=== PATIENT | male | born 1965 | race African-American/Black ===

== ENCOUNTER 2017-05-13 06:12 | Observation (INO) | payer BC ==
[2017-05-13] VITALS (14 sets, daily range): BP systolic 113–137; BP diastolic 65–86
[~2017-05-13] VITALS: Ht 172.7 cm; Wt 104.3 kg
[~2017-05-13 06:12] MED LIST: MESA1.2T PO; MESA10003 RC
[2017-05-13] MEDS ORDERED: GOLI100D SQ (06:25)
[2017-05-13 06:37] LABS: HEMOGLOBIN 15.2 g/dL (13.0-17.5); RED BLOOD COUNT 5.35 x10^6/uL (4.30-5.70); WHITE BLOOD COUNT 4.7 x10^3/uL (4.0-11.0)
[2017-05-13] MEDS ORDERED: LIDOCAINE 2% 20 ML VIAL. ONE (06:40)
[2017-05-13] MEDS ORDERED: IOHEXOL 300 MG/ML 100ML VIAL. ONE ×2 (06:40→08:15)
[2017-05-13 06:48] LABS: CALCIUM 8.9 mg/dL (8.5-10.1); CREATININE 0.9 mg/dL (0.7-1.3); GFR 107.2; POTASSIUM 4.1 mmol/L (3.5-5.1)
[2017-05-13 06:49] LABS: INR 1.1 (0.8-1.1); PROTHROMBIN TIME PATIENT 13.2 SEC (11.7-14.0)
[2017-05-13] MEDS ORDERED: NITROGLYCERIN 200 MCG/2 ML SYRINGE FOR CATH/VASC LAB. ONE (07:25)
[2017-05-13] MEDS ORDERED: VERAPAMIL 5 MG/2 ML VIAL. ONE (07:25)
[2017-05-13] MEDS ORDERED: HEPARIN for IV BOLUS 10,000 UNIT/10 ML VIAL. ONE (07:25)
[2017-05-13] MEDS ORDERED: fentaNYL PF VIAL 100 MCG/2 ML VIAL ONE (07:25)
[2017-05-13] MEDS ORDERED: MIDAZOLAM HCL/PF 2 MG/2 ML VIAL. ONE ×2 (07:26→08:10)
[2017-05-13] MEDS ORDERED: NITROGLYCERIN 200 MCG/2 ML SYRINGE FOR CATH/VASC LAB. IART ONE (07:45)
[2017-05-13] MEDS ORDERED: fentaNYL PF VIAL 100 MCG/2 ML VIAL IV ONE (07:45)
[2017-05-13] MEDS ORDERED: VERAPAMIL 5 MG/2 ML VIAL. IART ONE (07:45)
[2017-05-13] MEDS ORDERED: MIDAZOLAM HCL/PF 2 MG/2 ML VIAL. IV ONE (07:45)
[2017-05-13] MEDS ORDERED: HEPARIN for IV BOLUS 10,000 UNIT/10 ML VIAL. IART ONE (07:45)
[2017-05-13] MEDS ORDERED: LIDOCAINE 2% 20 ML VIAL. IJ ONE (07:45)
[2017-05-13] MEDS ORDERED: IOHEXOL 300 MG/ML 100ML VIAL. IART ONE (07:45)
[2017-05-13] MEDS ORDERED: BIVALIRUDIN 250 MG VIAL. IV ONE ×2 (07:57→08:15)
[2017-05-13] MEDS ORDERED: ASPIRIN 325 MG TABLET ONE (07:57)
--- NOTE | 2017-05-13 08:14 | HP ---
ADMIT DATE: 05/13/2017 HISTORY OF PRESENT ILLNESS: This is a 51-year-old black male who I saw for the first time on 04/28/2017, when he came in actually complaining of dizziness. He was very concerned about several episodes of dizziness. This would occur with exertion. He then admitted to having chest discomfort and shortness of breath with exertion. 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 He gives history of hypertension intermittently, and he says he is not on any medications. There is no history of diabetes mellitus. He also said that his cholesterol was high, though he did not know the numbers. The dizziness that he describes is certainly not vertigo. He just feels lightheaded. There are no associated palpitations. SOCIAL HISTORY: He does not smoke; in fact, he has never smoked. He drinks about 4-5 cans of beer a day. FAMILY HISTORY: His father at the age of 60 of an acute myocardial infarction. Prior to that he had at least 2 episodes of myocardial infarction. The patient is 51 years old. An older brother, who is 57 years old, recently had open heart surgery. PHYSICAL EXAMINATION: VITAL SIGNS: He was overweight with a weight of 238 pounds. The heart rate was 90 per minute and regular. The blood pressure initially was 160/100 in the office and then came down to 140/100. LUNGS: Clear. CARDIOVASCULAR: The heart sounds were normal with no murmur or gallop. The carotids are palpable with no bruits. ABDOMEN: Soft. EXTREMITIES: There is no edema and the distal pulses are palpable. LABORATORY DATA: An EKG was normal. Because of his dizziness, he underwent evaluation for orthostatic hypotension, though blood pressure when lying was 142/100 with a pulse of 88; on sitting, it was 136/92 with a pulse of 90 and on standing, it was 138/98 with a pulse of 98. When he continued to stand for 2 minutes, his blood pressure further dropped to 118/84 with a pulse of 100 per minute. He did feel somewhat dizzy then. IMPRESSION: 1. Chest discomfort and shortness of breath and dizziness, typical angina with exertion. 2. Mild hypertension with mild orthostatic hypotension. 3. History of dyslipidemia. He underwent an echocardiogram. It showed a normal systolic function with ejection fraction of 60%. There is a grade 1 diastolic dysfunction and no significant valvular dysfunction. He then underwent a myocardial perfusion imaging study with Lexiscan. There was a moderate-sized perfusion defect occupying the anterolateral wall and the inferior wall with stress but not with rest. This is suggestive of myocardial ischemia. The ejection fraction was 66%. LABORATORY INVESTIGATIONS: The hemoglobin was 15.2. The fasting blood sugar was 92. The BUN was 13, creatinine was 0.8. The potassium was 4.1. The TSH was 3.35. The total cholesterol was 205. The triglycerides were 118. The HDL cholesterol was 45. The LDL cholesterol was 136. He does have risk factors of hypertension and dyslipidemia and the family history of coronary artery disease. He is very symptomatic to the point that he is unable to work. He is only 51 years old. He will be subjected to coronary arteriograms. He has 2 perfusion defects, the more prominent one is in the lateral wall but there is a smaller anteroseptal wall defect. He may have more than one artery disease. He will be stented if feasible because of his younger age. I have discussed this with Dr. Acosta and Dr. Zamora. BINDU VICTOR MD DR: JELENA/prosper JOB#: [id number] / [id number]
[2017-05-13] MEDS ORDERED: ASPIRIN 325 MG TABLET PO ONE (08:15)
[2017-05-13] MEDS ORDERED: PRASUGREL 10 MG TABLET. ONE (08:33)
[2017-05-13] MEDS ORDERED: PRASUGREL 10 MG TABLET. PO ONE (08:45)
--- NOTE | 2017-05-13 10:04 | PDOC ---
MODERATE SEDATION ASSESSMENT RISKS/ALTERNATIVES Risks/Alternatives Risks and alternatives of this type of sedation and procedure discussed with: RISK/ALTERNATIVES: Patient H & P ON CHART H & P H & P on chart and reviewed for co-morbid conditions and appropriate labs. H&P ON CHART: Yes STATUS PREG STATUS ASSESSED: N/A MEDS/ALLERGIES REVIEWED Meds/Allergies Reviewed Medications and Allergies including time and route of recently administered narcotics and sedatives. MEDS/ALLERGIES REVIEWED: Yes ASA RATING ASA RATING: II AIRWAY ASSESSMENT Airway Assessment Airway patency, oral function limitations, presence of caps, crowns, dentures, partials, and ability to extend neck assessed. AIRWAY ASSESSMENT: Yes MALLAMPATI SCORE MALLAMPATI SCORE: II PRE-SEDATION ASSESSMENT PRE-SEDATION ASSESSMENT: Yes BRITTNEY PATEL MD May 13, 2017 10:04
[2017-05-13] MEDS ORDERED: IV 1/2 NORMAL SALINE 1,000 ML IV SCH (10:05)
[2017-05-13] MEDS ORDERED: ACETAMINOPHEN 325 MG TABLET. PO PRN (10:15)
[2017-05-13] MEDS ORDERED: AMIODARONE 150 MG in IV DEXTROSE 5% 100 ML IV PRN (10:15)
[2017-05-13] MEDS ORDERED: NITROGLYCERIN SUBLINGUAL 0.4 MG BOTTLE OF 25. SL PRN (10:15)
--- NOTE | 2017-05-13 10:18 | CARD ---
APPROVED REPORT Procedure(s) performed: 1. Left heart catheterization, selective coronary angiography via right lopez sradial approach 2. Successful PCI/drug eluting stents placement to the right coronary artery 3. Successful PCI/drug eluting stents placement to the left circumflex artery and obtuse marginal br anch INDICATION The indication(s) include : unstable angina . PROCEDURE NARRATIVE After explaining the risks, benefits and alternative options, informed consent was obtained from christina ent. Patient was brought to the cardiac [employer] and right wrist was prepped and draped in the usual fashion after confirming a positive modified Hosea's test. Arterial access was obtained in the righ t radial artery and a 6 Irish sheath was inserted. 6 Irish JL 3.5 and 6 Irish JR4 catheters were u sed to perform selective angiography of the left and right coronary arteries after initial attempts t o engage these vessels using 6 Irish Nirav catheter. Unsuccessful. LVEDP and transaortic gradients remeasured. The following findings were noted. FINDINGS 1. Hemodynamics: Left ventricular end-diastolic pressure of 5 mmHg. No pullback gradient across the aortic valve. 2. Coronary angiography: a. The left main coronary artery arose from the left sinus of Valsalva, gave rise to the left anteri or descending and left circumflex arteries and did not show any significant stenosis. b. The left anterior descending artery showed 80% stenosis involving the very distal segment towards the apical wall. c. The left circumflex artery showed 70% stenosis in the midsegment and 90% stenosis involving third obtuse marginal branch. d. The right coronary artery was a dominant vessel arising from the right sinus of Valsalva that vannessa wed a long 80% stenosis involving the midsegment. INTERVENTION The right coronary artery was engaged with a 6 Irish JR4 guide catheter and the stenosis in the mids egment was crossed with a 0.014 inch [employer] guidewire. This was predilated with a 2.5 x 15 mm balloon following which this was successfully treated with overlapping 2.5 x 18 mm and 2.75 x 38 mm Xience Alpine drug-eluting stents. Follow-up angiography showed resolution of the stenosis to 0% wit h NIKITA-3 distal flow. Subsequently, the left main coronary artery was engaged with a 6 Irish XB 3.5 guide catheter and the stenoses in the midsegment of the left circumflex artery and also the third ob tuse marginal branch were crossed with the same prowater guidewire. The obtuse marginal branch stenos is was successfully treated with a 2.25 x 15 mm Xience Alpine and the midsegment of the left circumfl ex artery was treated with a 3.5 x 15 mm Xience Alpine drug-eluting stents. Follow-up and jugular V s howed resolution of both these stenoses to 0% with NIKITA-3 distal flow. Patient tolerated the procedur e well. Hemostasis was achieved using TR band. There were no immediate complications. Conclusion Successful PCI/drug eluting stents placement to the right coronary artery, left circumflex artery and the third obtuse marginal branch. Patient also has residual 80% stenosis involving the very distal s egment of left anterior descending artery towards apical wall that could be managed medically. Recommendations 1. Aspirin 325 mg daily 2. Effient 10 mg daily for preferably one year 3. Cardiovascular risk factor modification.
[2017-05-13] MEDS ORDERED: PRAS10TA9 PO (20:11)
[2017-05-13] MEDS ORDERED: ATOR40TA59 PO (20:11)
[2017-05-13] MEDS ORDERED: ASPI325T8 PO (20:43)
[2017-05-13] MEDS ORDERED: ATORVASTATIN CALCIUM 20 MG TABLET PO SCH (21:00)
[2017-05-13] MEDS ORDERED: MESALAMINE 1.2 GM TABLET.DR PO SCH (21:00)
--- NOTE | 2017-05-14 00:29 | DS ---
DATE OF DISCHARGE: 05/13/2017 HOSPITAL COURSE: This is a 51-year-old black male who was seen in the office with complaints of chest pain, shortness of breath and dizziness with exertion. He underwent a myocardial perfusion imaging study. It showed a large defect in the lateral wall indicative of ischemia. There was another area that was smaller with anterior apical wall. He underwent coronary arteriograms by Dr. Acosta on 05/13/2017. The findings are as follows: The left main coronary artery is normal. The LAD had 80% stenosis involving the very distal segment towards the apical wall. The circumflex coronary artery showed 70% stenosis in its mid segment. There is another area of 90% stenosis involving the third obtuse marginal branch. The right coronary artery was a dominant vessel and showed a long ____ 80% stenosis involving the mid segment. He does underwent the following procedures. 1. The right coronary artery was stented with overlapping drug-eluting stents. 2. There was a stent placed in the mid segment of the left circumflex coronary artery and another stent in the third obtuse marginal branch. No intervention was carried out at the distal LAD lesion. He was observed till that evening. He was feeling well and was discharged. The hemoglobin was ____. The BUN was 9 and the creatinine was 0.9. FINAL DIAGNOSES: 1. Typical chest pain with exertion. 2. Severe triple vessel disease. HOMEGOING INSTRUCTIONS: 1. Activities to tolerance. 2. A 2 g sodium, low cholesterol diet. 3. Atorvastatin 40 mg a day. 4. ____ 10 mg a day. 5. Aspirin 325 mg a day. 6. Continue the Simponi 100 mg a month. 7. Mesalamine 1.2 g 3 times a day. He will be seen in the office in 2 weeks. He will follow up with Dr. Han Alejandre. BINDU VICTOR MD DR: JELENA/prosper JOB#: [id number] / [id number] HAN Larry MD
[2017-05-14] MEDS ORDERED: PRASUGREL 10 MG TABLET. PO SCH (08:00)
[2017-05-14] MEDS ORDERED: ASPIRIN ENTERIC COATED 325 MG TABLET.DR. PO SCH (08:00)
[2017-06-17] MEDS ORDERED: GOLIMUMAB SQ SCH (09:00)
== END 2017-05-13 21:50 | disposition home or self-care (01) ==
LOC: CCL 06:12 → INTOOBSV 08:27 → 2 SOUTH 08:27
PROVIDERS: ADMIT Specialist; ATTEND Internal Medicine Cardiovascular Disease
DX: I25.119 Atherosclerotic heart disease of native coronary artery with unspecified angina pectoris (principal); I95.1 Orthostatic hypotension; I10 Essential (primary) hypertension; E78.5 Hyperlipidemia, unspecified; I25.9 Chronic ischemic heart disease, unspecified; Z79.82 Long term (current) use of aspirin; Z79.899 Other long term (current) drug therapy; Z82.49 Family history of ischemic heart disease and other diseases of the circulatory system
CPT/HCPCS: 36415; 80048; 85027; 85610; 85730; 93458; 96374; 96375; C1725; C1769; C1874; C1887; C1892; C9600; G0378; G0379; J0583; J1644; J2001; J2250; J3010; J3490; Q9967; 92928; 92929; 99152; 99153

== ENCOUNTER → 2019-04-18 | Outpatient (CLI) | payer OTHER ==
[2017-05-13 19:20] VITALS: BP 129/75
[~2019-04-18] MED LIST changes: +ASPI325T8 PO; +ATOR40TA59 PO; +CONTRAST GIVEN. MC PRN; +GOLI100D SQ; +IOHEXOL 300 MG/ML 100ML VIAL. IV ONE; +LIALDA1.2 GM PO; -MESA1.2T PO; +PRAS10TA9 PO
--- NOTE | 2019-04-18 12:14 | RAD ---
CT of the abdomen and pelvis with contrast (CT enterography), 04/18/2019: HISTORY: Irritable bowel syndrome, perianal abscess Multidetector CT imaging was performed following an IV bolus injection of iodinated contrast material. The patient ingested the Volumen orally for negative contrast within the bowel lumen. Multiplanar reconstructions were produced. The stomach is unremarkable. The small bowel loops are of normal caliber with no evidence of thickening of their folds. The cecum lies in a high position directed anteriorly along the anterior aspect of the hepatic flexure. The terminal ileum is unremarkable. The appendix was visualized and shows no abnormality. There is mild colonic mural thickening which is most prominent at the sigmoid level. The rectum is collapsed and not clearly defined. There does appear to be rectal mural thickening. There is an abnormal collection of gas and fluid along the left side of the rectum at the anal level. It is elongated in configuration with extension inferiorly into the medial gluteal region as well as extension posteriorly to the level the coccyx. It measures only slightly greater than 1 cm in greatest width. This process measures approximately 7-8 cm in greatest AP length and 5-6 cm in craniocaudad extent. There is mild streaky increased density in the adjacent fat compatible with inflammation. There is an elongated radiopaque structure in the anal crease along the posterior aspect of the anus which may represent some sort of drain or packing material. Clinical correlation is suggested. The liver is unremarkable. No gallbladder abnormality is seen. The pancreas is unremarkable. The spleen is of normal size. No renal or adrenal abnormality is detected. There is minimal aortoiliac calcific plaquing. Coronary artery calcifications are noted. No abdominal or pelvic adenopathy is seen. IMPRESSION: 1. Mild colonic mural thickening which is best seen at the rectosigmoid level compatible with nonspecific colitis. 2. Elongated, thin, branching left perianal abscess extending both inferiorly and posteriorly as described above. PQRS Compliance Statement: One or more of the following individualized dose reduction techniques were utilized for this examination: 1. Automated exposure control 2. Adjustment of the mA and/or kV according to patient size 3. Use of iterative reconstruction technique Electronically signed by: Silvio Delgado MD (04/18/2019 12:11 PM) [facility]
== END | disposition home or self-care (01) ==
LOC: CT 08:11
PROVIDERS: ATTEND Physician Assistant
DX: K63.89 Other specified diseases of intestine (principal); K61.0 Anal abscess; I70.0 Atherosclerosis of aorta; I25.10 Atherosclerotic heart disease of native coronary artery without angina pectoris
CPT/HCPCS: 74170; Q9967

== ENCOUNTER → 2019-05-20 | Outpatient (CLI) | payer OTHER ==
[2019-05-20] VITALS (7 sets, daily range): BP systolic 101–119; BP diastolic 53–75
[~2019-05-20] VITALS: Ht 175.3 cm; Wt 104.3 kg
[~2019-05-20] MED LIST changes: -CONTRAST GIVEN. MC PRN; -IOHEXOL 300 MG/ML 100ML VIAL. IV ONE
[2019-05-20 09:22] LABS: HEMATOCRIT 22.1 % (39.0-53.0)
[2019-05-20 09:23] LABS: HEMOGLOBIN 6.6 g/dL (13.0-17.5)
== END | disposition home or self-care (01) ==
LOC: OPS 08:36
PROVIDERS: ATTEND Physician Assistant
DX: D64.9 Anemia, unspecified (principal); I25.10 Atherosclerotic heart disease of native coronary artery without angina pectoris
CPT/HCPCS: 36415; 36430; 85014; 85018; 86850; 86900; 86901; 86920; P9016